=== PATIENT | female | born 1995 | race Caucasian/White ===

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

== ENCOUNTER → 2017-10-20 | Outpatient (CLI) | payer OTHER | END | disposition home or self-care (01) | LOC: C.LAB1850 15:40 | PROVIDERS: ATTEND Internal Medicine | DX: F41.9 Anxiety disorder, unspecified (principal) ==

== ENCOUNTER 2022-01-08 06:56 | Inpatient (IN) ==
[2022-01-08] MEDS ORDERED: LACTATED RINGER'S 1,000 ML IV PRN (07:27)
[2022-01-08] MEDS ORDERED: PENICILLIN G POTASSIUM 6 MU in DEXTROSE 5% 250 ML IV STA (07:27)
[2022-01-08] MEDS ORDERED: OXYTOCIN 30 UNITS/500 ML BAG IV PRN ×2 (07:27→08:40)
[2022-01-08 08:17] LABS: Hematocrit (blood only) 39.9 % (37-47); Mean Corpuscular Hemoglobin 30.1 pg (25-34); Mean Corpuscular Hgb Conc 35.1 g/dL (32-36); Mean Corpuscular Volume 85.8 fL (80-100); Mean Platelet Volume 11.5 fL (7.4-10.4); Platelet Count 212 K/uL (130-400); RDW Coefficient of Variation 13.9 % (11.5-14.5); Red Blood Count 4.65 M/uL (4.2-5.4); White Blood Count 12.54 K/uL (4.8-10.8)
[2022-01-08] MEDS ORDERED: METHYLERGONOVINE MALEATE 0.2 MG/ML AMP ONE (08:20)
[2022-01-08] MEDS ORDERED: LIDOCAINE 1% LOCAL 20 ML VIAL ONE (08:21)
[2022-01-08] MEDS ORDERED: bisacodyL 10 MG SUPP PR PRN (08:40)
[2022-01-08] MEDS ORDERED: ACETAMINOPHEN W/CODEINE #3 1 TAB PO PRN (08:40)
[2022-01-08] MEDS ORDERED: BENZOCAINE 20% AER SPR 82.5 GM CAN EXT PRN (08:40)
[2022-01-08] MEDS ORDERED: oxyCODONE/ACETAMINOPHEN 5mg/325mg TAB PO PRN (08:40)
[2022-01-08] MEDS ORDERED: HYDROCORTISONE ACETATE 25 MG SUPP PR PRN (08:40)
[2022-01-08] MEDS ORDERED: DIPHTHERIA/TETANUS/PERTUSSIS 0.5 ML SYR/VIAL IM ONE (08:40)
[2022-01-08] MEDS ORDERED: ACETAMINOPHEN 325 MG TAB PO PRN (08:40)
[2022-01-08] MEDS ORDERED: METHYLERGONOVINE MALEATE 0.2 MG/ML AMP IM ONE (08:40)
[2022-01-08] MEDS: IBUPROFEN 600 MG TAB PO PRN ×5 (09:00→22:13)
--- NOTE | 2022-01-08 09:29 | Delivery Summary ---
DATE OF DELIVERY: 01/08/2022. DELIVERY NOTE: The patient has been followed in our office for care and delivery. She call ed and stated she was going to the hospital, she was in labor. She arrived at the hospital, she was fully dilated with membranes intact. When I arrived, I ruptured the membranes. Fluid was clear and in about 5 pushes, she pushed out a live infant via direct occiput anterior position over an intact p erineum. was suctioned through the mouth and the nose. Shoulders were delivered without diff iculty. Cord was allowed to pulse for one full minute, then clamped and cut. Cord blood was taken. With IV Pitocin running, the placenta was removed intact. Inspection of the perineum revealed a sma ll sulcus laceration at 10 o'clock, which went out into the labia minora. There was apex which was i dentified and then the defect was sutured with a running heavy Vicryl on the right side and at about 4 o'clock there was another superficial sulcus laceration that went out slightly onto the perineum an d this was also sutured with a running 2-0 Vicryl. Both of these sutures were placed under local ane sthesia. Following this, hemostasis was good. Sponges were removed from the vagina. No hematoma fo rmation was noted. Estimated blood loss was 200 mL. Job ID: [id number]
[2022-01-08] MEDS: DOCUSATE SODIUM 100 MG CAP PO SCH (22:10)
[2022-01-08] MEDS ORDERED: ESCITALOPRAM OXALATE 20 MG TAB PO SCH (23:00)
[2022-01-09 06:42] LABS: Hematocrit (blood only) 35.2 % (37-47); Mean Corpuscular Hemoglobin 30.1 pg (25-34); Mean Corpuscular Hgb Conc 34.1 g/dL (32-36); Mean Corpuscular Volume 88.2 fL (80-100); Mean Platelet Volume 10.8 fL (7.4-10.4); Platelet Count 169 K/uL (130-400); RDW Coefficient of Variation 14.4 % (11.5-14.5); RDW Standard Deviation 46.4 fL (36.4-46.3); Red Blood Count 3.99 M/uL (4.2-5.4); White Blood Count 15.63 K/uL (4.8-10.8)
[2022-01-09] MEDS: DOCUSATE SODIUM 100 MG CAP PO SCH (07:48)
[2022-01-09] MEDS: IBUPROFEN 600 MG TAB PO PRN (07:48)
[2022-01-09] MEDS ORDERED: PRENATAL VITAMIN 1 TAB PO SCH (08:00)
--- NOTE | 2022-01-09 09:06 | Obstetrical Progress Note ---
Date of Service January 09, 2022 Assessment & Plan Admission and Anticipated Discharge Date Admission Date: January 08, 2022 Subjective abdomen soft and non tender no calf tenderness ambulating well vaginal bleeding scant hgb 12.0 Results & Data ([facility]) Vital Signs (Past 12 Hours) Vital Signs Temp Pulse Resp BP Pulse Ox 01/09/22 05:30 36.8 C 77 18 120/82 98 01/09/22 01:00 36.9 C 78 18 124/89 99
[2022-01-09] MEDS ORDERED: bisacodyL 5 MG TABEC PO SCH (20:00)
== END 2022-01-09 11:35 | disposition home or self-care (01) | DRG 807 ==
LOC: OPB 06:56 → 4S1 07:00 → 4E2 12:00